=== PATIENT | female | born 1970 | race Caucasian/White ===

== ENCOUNTER 2017-03-22 22:12 | Inpatient (IN) | payer SELFPAY ==
[~2017-03-22] VITALS: Ht 157.5 cm; Wt 93.4 kg
--- NOTE | ~2017-03-22 | HP ---
PATIENT'S NAME: JAY JAY CABRAL [facility] AGE: 46 Y [address] ROOM: [place] [address] LOCATION: [facility] [place] ADMIT DATE: 03/22/2017 History & Physical DISCHARGE DATE: FAMILY PHYSICIAN: PHYSICIAN, NO ATTENDING PHYSICIAN: CORY MERRILL DATE OF SERVICE: CHIEF COMPLAINT: Right lower quadrant pain and right flank pain. HISTORY OF PRESENT ILLNESS: This is a 46-year-old female with a prior history of kidney stones, status post left nephrectomy 1 year ago. The story is that today around 10 o'clock in the morning the patient felt this right lower quadrant and right flank pain. The patient took some Motrin for pain relief; and it did help some, but did not help totally. The pain persisted and got worse around 6 p.m. today the patient only peed once and a very little amount, but she denies any dysuria, urinary frequency or urgency. The patient also felt nauseous, but she did not vomit. Her last meal was a grilled sandwich about roughly around 9 p.m. Because the pain got worse, the patient came here for evaluation. In the emergency room, the patient had a CT scan of abdomen and pelvis without contrast, which showed a moderate right-side hydroureteronephrosis, secondary to 7-mm ureteral calculus at the pelvic inlet. The patient will be taken to the operating room to have the cystoscopy and right ureteral stent placement. REVIEW OF SYSTEMS: As mentioned in history of present illness. All other systems were reviewed and were negative except those mentioned in history of present illness. PAST MEDICAL HISTORY: 1. Hypothyroidism. 2. Hypertension. 3. Depression. ALLERGIES: NO KNOWN DRUG ALLERGIES. HOME MEDICATIONS: Currently, it is being reconciled. The patient does not take any blood thinners or aspirin at home. SOCIAL HISTORY: PATIENT'S NAME: JAY JAY CABRAL [facility] AGE: 46 Y [address] ROOM: [place] [address] LOCATION: [facility] [place] ADMIT DATE: 03/22/2017 History & Physical DISCHARGE DATE: FAMILY PHYSICIAN: PHYSICIAN, NO ATTENDING PHYSICIAN: CORY MERRILL The patient denies any alcohol, cigarette, or illegal drug use. PAST SURGICAL HISTORY: Left nephrectomy 1 year ago. FAMILY HISTORY: She does not remember about her father, but her mother has hypertension and diabetes type 2. PHYSICAL EXAMINATION: VITAL SIGNS: At the time of dictation, temperature 98, blood pressure 170/100, respirations 14, heart rate 86, and saturation 97% on room air. GENERAL APPEARANCE: Alert and oriented x3, in no acute distress. HEENT: Pupils are equally round and reactive to light. Extraocular muscles intact. Anicteric sclerae. Nasal turbinates are normal bilaterally. Moist oral mucosa. CARDIOVASCULAR: Regular rate and rhythm. No murmur, no rubs, no gallops. Normal S1, S2. RESPIRATORY: Clear to auscultation. No rales. No rhonchi. No wheezing. No crackles. ABDOMEN: Soft, obese, tender to palpation in the right lower quadrant and also on the right flank area, intensity about 6/10. No abdominal rigidity. Bowel sounds present. No mass. EXTREMITIES: No edema in upper or lower extremities. SKIN: No ulcer, no rash, no cyanosis. NEUROLOGICAL: Grossly nonfocal. LABORATORY DATA: White blood cell 12.5, hemoglobin 13.4, hematocrit 40.4, and platelet 215. Glucose 151, BUN 41, creatinine 2.5, sodium 135, potassium 4.4, chloride 105, CO2 21, calcium 9.5, total protein 7.8, albumin 3.2, AST 38, ALT 38, alkaline phosphatase 52, total bilirubin 1.0, anion gap 13.4, globulin 4.6, and GFR 21. IMAGING STUDIES: CT abdomen and pelvis without contrast on admission showed moderate right- sided hydroureteronephrosis related to a 7-mm ureteral calculus at the pelvic inlet. This is a preliminary report. ASSESSMENT AND PLAN: 1. Regarding her severe sepsis secondary to UTI/pyelnephritis secondary to right-sided hydroureteronephrosis from obstructive 7-mm right ureteral calculus at the pelvic inlet: I will cover her with intravenous Zosyn right now, get 2 sets of blood culture, get a UA and urine culture. The patient will be going to the operating room now to undergo a stent placement by Urology Service. After that, we will start the patient on intravenous fluids given that currently the patient cannot PATIENT'S NAME: JAY JAY CABRAL [facility] AGE: 46 Y [address] ROOM: [place] [address] LOCATION: [facility] [place] ADMIT DATE: 03/22/2017 History & Physical DISCHARGE DATE: FAMILY PHYSICIAN: PHYSICIAN, NO ATTENDING PHYSICIAN: CORY MERRILL make any urine due to the kidney stone obstruction. N.p.o. for now in anticipation for stent placement. Further plan will depend on clinical course. 2. Regarding her acute kidney injury: This is secondary to postobstructive acute kidney injury due to the kidney stone that is obstructive on the right ureteral calculus at the pelvic inlet of 7-mm. Refer to the plan in right-sided hydroureteronephrosis as mentioned above. 3. Regarding her hypertension: Hold the blood pressure medication for now and can resume once it is appropriate. 4. Regarding her hypothyroidism: Continue the home medication, but I will check a TSH to make sure that we do not have to titrate the dose. 5. Regarding her depression: Continue home medication. 6. Regarding her deep vein thrombosis prophylaxis: Currently, undergoing the ureteral stent and can consider pharmacologic agent after the stent is placed. 7. She is a full code. Time spent in care on the day of admission 35 minutes, where 15 minutes was spent on chart review and the remainder of the time was spent on interview, physical examination, and counseling, which includes going over the plan of care with the patient and addressing all the question and concern the patient had. Further plan will depend on clinical course. CORY MERRILL MD CC/bria /[id number] D: [id number] T: [id number] HISTORY & PHYSICAL
--- NOTE | ~2017-03-22 | OR ---
PATIENT'S NAME: JAY JAY CABRAL [facility] AGE: 47 Y [address] ROOM: [place] [address] [place] [facility] [place]: 03/22/2017 OR/Procedure Report DISCHARGE DATE: 03/24/2017 FAMILY PHYSICIAN: ELIESER BUTTERFIELD ATTENDING PHYSICIAN: Vidal Perez SURGEON: Anum Alvarez MD TRAUMA COORDINATOR: None. DATE OF PROCEDURE: 03/22/2017 PREOPERATIVE DIAGNOSES: 1. 7 mm distal obstructing right ureteral calculus. 2. Solitary right kidney. 3. Acute kidney injury. 4. Nonobstructing right lower pole renal calculus. 5. Recurrent nephrolithiasis. POSTOPERATIVE DIAGNOSES: 1. 7 mm distal obstructing right ureteral calculus. 2. Solitary right kidney. 3. Acute kidney injury. 4. Nonobstructing right lower pole renal calculus. 5. Recurrent nephrolithiasis. OPERATIVE PROCEDURE: Cystoscopy with placement of indwelling right ureteral stent. ANESTHESIA ADMINISTERED: Monitored anesthesia care. INDICATIONS FOR PROCEDURE: The patient is a pleasant 46-year-old female, who had presented with acute onset of right flank pain. The patient does have a history of recurrent nephrolithiasis and solitary right kidney. She had apparently underwent a hand assisted laparoscopic left nephrectomy approximately one year ago for a nonfunctioning left kidney in the setting of recurrent urinary tract infection and recurrent nephrolithiasis. For her right flank pain, she underwent further evaluation with a CT scan with findings including a 7 mm distal ureteral stone at the level of her pelvic inlet as well as a nonobstructing right lower pole stone measuring approximately 3-4 mm in size. She did have significant hydronephrosis and hydroureter leading down to the level of the obstructing 7 mm stone. She was also found to have an elevated serum creatinine level of 2.5. The patient was explained the risks, benefits, indications, and alternatives to the above procedure and wished to proceed and consented freely. DESCRIPTION OF OPERATION: The patient was brought back to the operating room, where she was placed on the OR table in the supine position. A surgical time- PATIENT'S NAME: JAY JAY CABRAL [facility] AGE: 47 Y [address] ROOM: [place] [address] [place] [facility] [place]: 03/22/2017 OR/Procedure Report DISCHARGE DATE: 03/24/2017 FAMILY PHYSICIAN: ELIESER BUTTERIFELD ATTENDING PHYSICIAN: Vidal Perez out was called where patient identification, surgical site, and procedure was then verified. We also did verify that the patient received an IV antibiotic within an hour prior to beginning the procedure. After undergoing successful administration of anesthesia, the patient was then moved and placed in a low lithotomy position. The patient's genital area was then prepped and draped in usual sterile fashion. I began by carefully advancing into the patient's bladder with a rigid cystoscope. Her urethra was within normal limits. Upon entering her bladder, a full mojica cystoscopy was performed. Her bladder was negative for any bladder tumors, cellules, or diverticula. Her ureteral orifices were noted to be in orthotopic location. I then utilized a Sensor guidewire to carefully advance the wire cannulating the patient's right ureteral orifice and was able to advance the wire past the obstructing stone and up to the patient's right renal pelvis. Then over the wire, I advanced a 4.8-Ugandan multi-length ureteral stent deploying it noting a good curl fluoroscopically in the patient's right renal pelvis as well as a good curl visually in the patient's bladder. I then emptied the patient's bladder and the patient was then taken out of the lithotomy position where she was then awoken from anesthesia, transferred to recovery bed, and transported to the recovery room in good condition. COMPLICATIONS: None. DRAINS: Indwelling right ureteral stent. ESTIMATED BLOOD LOSS: Minimal. SPECIMENS: None. FOLLOWUP PLAN: We will plan to have the Hospitalist team closely monitor her renal function overnight and if it continues to improve, then we will get her set up for followup as an outpatient for right ureteroscopy, laser lithotripsy, and stent exchange. ANUM ALVAREZ MD GP/bria /[id number] d: 04/10/172048 t: 04/11/17 0803, OPERATIVE SUMMARY
--- NOTE | ~2017-03-22 | CON ---
PATIENT'S NAME: JAY JAY CABRAL [facility] AGE: 46 Y [address] ROOM: [place] [address] [place] [facility] [place]: 03/22/2017 Consultation DISCHARGE DATE: FAMILY PHYSICIAN: ALYCE WHITLOCK ATTENDING PHYSICIAN: CORY MERRILL DATE OF CONSULTATION: 03/22/2017 REFERRING PHYSICIAN: ANUM DAVIDSON MD CHIEF COMPLAINT: Right flank pain. HISTORY OF PRESENT ILLNESS: The patient is a pleasant 46-year-old female, who presented with acute onset of right flank pain. The patient does have a history of recurrent nephrolithiasis and solitary right kidney. She had apparently underwent a hand assisted laparoscopic left nephrectomy approximately 1 year ago for a nonfunctioning left kidney in the setting of recurrent urinary tract infection and recurrent nephrolithiasis. She has had continued difficulty with recurrent nephrolithiasis now in her remaining and solitary right kidney. She states that she had underwent ureteroscopy with apparent laser lithotripsy in September along with stent placement in [place], then underwent stent removal in October. She also states she recently completed a 24-hour urine analysis with her urologist in [place]. She was noted in the emergency room to have an elevated creatinine of 2.5 and white blood cell count of 12.5. She has not made any urine now for the last 3 to 4 hours. She underwent a CT scan in the emergency room here, which demonstrated a 7-mm ureteral distal stone at the level of her pelvic inlet as well as nonobstructing right lower pole stone measuring approximately 3 to 4 mm in size. She had significant hydronephrosis and hydroureter leading down to the level of the obstructing 7-mm stone. She denies any nausea or vomiting, but has had continued severe right flank pain. She was still not able to give a urine specimen as she has not been able to void and so no urinalysis is back yet. The patient has no further questions or concerns at this time. PAST MEDICAL HISTORY: 1. Recurrent nephrolithiasis. 2. Hypertension. 3. Solitary right kidney. 4. Recurrent urinary tract infection. PAST SURGICAL HISTORY: 1. Left laparoscopic hand assisted nephrectomy approximately 1 year ago in PATIENT'S NAME: JAY JAY CABRAL [facility] AGE: 46 Y [address] ROOM: [place] [address] [place] [facility] [place] [place]: 03/22/2017 Consultation DISCHARGE DATE: FAMILY PHYSICIAN: PHYSICIAN, NO ATTENDING PHYSICIAN: CORY MERRILL [place], [place]. 2. Spinal fusion. FAMILY HISTORY: The patient denies any known family history of nephrolithiasis. SOCIAL HISTORY: The patient denies any tobacco use or alcohol use. 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 ALLERGIES: NO KNOWN DRUG ALLERGIES. MEDICATIONS: See hospitalization medication reconciliation. REVIEW OF SYSTEMS: A full 10 plus point review of systems was performed with pertinent positive and negative findings included in the history of present illness. All other systems reviewed and are otherwise negative. PHYSICAL EXAMINATION: VITAL SIGNS: Stable. CONSTITUTIONAL: Mild distress. The patient is awake and oriented. HEENT: Extraocular muscles intact. Mucous membranes moist. No drainage per ears or nose. CARDIAC: Good peripheral perfusion. RESPIRATORY: No audible wheezing and no apparent respiratory distress on room air. ABDOMEN: Nontender, obese. She does have some mild right CVA discomfort. MUSCULOSKELETAL: Moves all extremities. NEUROLOGIC: No focal deficits noted. HEMATOLOGIC: No bruising or active sites of bleeding. PSYCHIATRIC: Normal affect and answers questions appropriately. IMAGING: I personally reviewed her images from her CT scan consistent with findings noted above in history of present illness. IMPRESSION: 1. 7-mm distal obstructing right ureteral calculus. 2. Solitary right kidney. 3. Acute kidney injury. 4. Nonobstructing right lower pole renal calculus. 5. Recurrent nephrolithiasis. PATIENT'S NAME: JAY JAY CABRAL [facility] AGE: 46 Y [address] ROOM: [address] [address] [place] [facility] [place]: 03/22/2017 Consultation DISCHARGE DATE: FAMILY PHYSICIAN: PHYSICIAN, NO ATTENDING PHYSICIAN: CORY MERRILL PLAN: I had a long discussion today with the patient regarding my findings. Given her obstructing stone in the setting of a solitary kidney, I did recommend urgent decompression with cystoscopy and stent placement. The patient will also ultimately need further treatment on an outpatient basis with right ureteroscopy with laser lithotripsy and stent exchange. I did explain to the patient the risks, benefits, indications, and alternatives to the above procedure and she wished to proceed and consented freely. The patient has no further questions or concerns at this time. MD SOHEILA SHOEMAKER/bria /[id number] d: 03/23/17 0405 t: 03/24/17 1032, CONSULTATION REPORT
--- NOTE | ~2017-03-22 | ER ---
PATIENT'S NAME: JAY JAY CABRAL [facility] AGE: 46 Y [address] ROOM: [place] [address] LOCATION: [facility] [place] ADMIT DATE: 03/22/2017 ER/Outpatient Report DISCHARGE DATE: FAMILY PHYSICIAN: PHYSICIAN, NO ATTENDING PHYSICIAN: CORY MERRILL Time of Arrival: 2212 hours. Time of Evaluation: 2217 hours. CHIEF COMPLAINT: Right flank pain, possible kidney stone. HISTORY OF PRESENT ILLNESS: This is a 46-year-old female, who presents to the ER, who states that she has a significant history of kidney stones in the past and ultimately had to have a left nephrectomy from that. She states she developed right flank pain around 10 o'clock this morning, and it radiates into her groin area. She describes her pain as sharp and crampy like. She states that then 3 hours prior to arrival, she stopped making urine. She has had no nausea or vomiting. No fever or chills. She states that she has concerns since she just has her one kidney and denies any other problems at this time. ALLERGIES: NO KNOWN ALLERGIES. MEDICATIONS: Please see medication list in nurse's notes. PAST MEDICAL HISTORY: Hypertension. PAST SURGICAL HISTORY: She has had a left nephrectomy and a back surgery. SOCIAL HISTORY: Denies smoking, drug, or alcohol use. REVIEW OF SYSTEMS: All systems were reviewed and were negative with the exception of those discussed in the HPI. PHYSICAL EXAMINATION: VITAL SIGNS: Height 5 feet 2 inches stated, weight 96.4 kg taken, blood pressure is 188/108, pulse 51, respirations 16, temperature 97.6 degrees tympanically, and saturations 97% on room air. Ashlee Coma Score is 15. PATIENT'S NAME: JAY JAY CABRAL [facility] AGE: 46 Y [address] ROOM: [address] [address] LOCATION: [facility] [place] ADMIT DATE: 03/22/2017 ER/Outpatient Report DISCHARGE DATE: FAMILY PHYSICIAN: PHYSICIAN, ALYCE ATTENDING PHYSICIAN: CORY MERRILL GENERAL: An alert and obese female, in mild distress. HEENT: Head: Normocephalic. She does display moist mucous membranes. Eyes: Pupils are equal and reactive to light. NECK: Supple. No lymphadenopathy. LUNGS: Clear to auscultation bilaterally. HEART: Bradycardic, normal rhythm. ABDOMEN: Soft. She does have some right-sided abdominal discomfort with palpation. She has no guarding or rebound tenderness. She has good bowel sounds throughout. She has some mild right-sided CVA tenderness as well. EXTREMITIES: No clubbing or cyanosis. She does have full range of motion of all limbs. SKIN: Warm, dry, and intact. NEURO: Cranial nerves 2 through 12 grossly intact. Gait is steady without assistance. LABORATORY DATA: CBC: White count is 12.5, hemoglobin is 13.4, platelets 215, ANC is 10.6. CMS: Sodium is 135, potassium is 4.4, BUN is 41, creatinine 2.5, estimated GFR is 21. CT scan was done per stone protocol and does show a moderate right- sided hydronephrosis related to a 7 mm ureteral calculus at the pelvic inlet. IMPRESSION: A 7 mm kidney stone in the right pelvic inlet causing obstruction with elevation of BUN and creatinine. ASSESSMENT AND PLAN: We did establish an IV here in the emergency room. We did give her 15 mg of Toradol IV. The patient remained comfortable, and she did not want anything stronger than that given while here in the emergency room. The patient does not have a primary care physician in this area. I did call Dr. Alvarez after I got results of the CT scan and then notified Dr. Merrill, the hospitalist. They will both be coming to evaluate the patient here in the emergency room. The patient understands and agrees with care. ADEBAYO MARIN PA-C FOR MD DAVID PADGETT/bria /[id number] d: t: 03/28/17 1500, OUTPATIENT REPORT
--- NOTE | ~2017-03-22 | DS ---
PATIENT'S NAME: JAY JAY CABRAL [facility] AGE: 46 Y [address] ROOM: [place] [address] LOCATION: [facility] [place] ADMIT DATE: 03/22/2017 Discharge Summary DISCHARGE DATE: 03/24/2017 FAMILY PHYSICIAN: PHYSICIAN, ALYCE ATTENDING PHYSICIAN: Vidal Perez PRIMARY DIAGNOSIS FOR THIS HOSPITALIZATION: 1. Urolithiasis. 2. Acute kidney injury on chronic kidney disease. 3. Positive blood culture, likely a contaminant. 4. Accelerated hypertension. CHRONIC CONDITIONS: Solitary kidney. CONSULTANTS: The consultants who participated in the patient's care is Dr. Alvarez of Urology. PROCEDURE PERFORMED: Cystoscopy with placement of ureteral stent. SUMMARY OF HOSPITALIZATION: The patient is a 46-year-old female, who has a past medical history of recurrent kidney stones with an eventual nephrectomy, who presented to [facility] with complaints of flank pain and was found to have a 7 mm obstructing calculus in the right collecting stone. She was also found to be in acute kidney injury, with a creatinine of 2.5 up from baseline of 1.6. She was taken urgently for cystoscopy with stent placement and decompression by Dr. Alvarez. The procedure was successful. The patient was transferred back to medical-surgical unit and was aggressively hydrated. Eventually, her creatinine improved to 1.9. The patient insisted on going home as soon as possible, but we talked to her and she was staying for an additional night in order to achieve that creatinine improvement. The patient did have a single set of blood cultures which were positive with a gram-positive non-staph organism. Those cultures are still pending, but the second set remained negative and repeat cultures drawn once the first set came back positive remained negative. She did not exhibit any fevers, chills, or any other evidence of systemic bacterial infection. She was started on ceftriaxone and maintained on the antibiotics from the time of admission. Today, the patient insisted on going home and I explained to her that while I do feel that her blood culture is likely a contaminant, we have to be very vigilant given the presence of a Uro/nephrolithiasis and a stent. I explained to the patient that we will follow her repeat cultures (as well as the second set from the initial draw) for the next 24 to 48 hours. If they do come back positive, she will be called to come back to the hospital. She was also told that immediately seek medical care if she developed fevers, chills, nausea, vomiting, or urinary symptoms. The patient PATIENT'S NAME: JAY JAY CABRAL [facility] AGE: 46 Y [address] ROOM: [place] [address] LOCATION: [facility] [place] ADMIT DATE: 03/22/2017 Discharge Summary DISCHARGE DATE: 03/24/2017 FAMILY PHYSICIAN: ALYCE WHITLOCK ATTENDING PHYSICIAN: Vidal Perez was satisfied with this plan. She was discharged home on cefdinir 300 mg p.o. b.i.d. She was advised to follow up with Dr. Alvarez for outpatient followup as she will require additional intervention on her kidney. Time dedicated to the patient encounter is 35 minutes. MD KIRK TELLES/bria /[id number] d: 03/24/172226 t: 04/01/17 2315, DISCHARGE SUMMARY
[2017-03-22 22:45] LABS: BASOPHIL # 0.1 K/uL (0.0-0.2); BASOPHIL % 0.5 %; EOSINOPHIL # 0.2 K/uL (0.0-0.5); EOSINOPHIL % 1.7 %; HEMATOCRIT 40.4 % (33.0-46.0); HEMOGLOBIN 13.4 g/dL (10.0-15.0); IMMATURE GRANULOCYTE # 0.1 K/uL (0.0-0.3); IMMATURE GRANULOCYTE % 0.6 %; LYMPHOCYTE % 8.2 %; MCH 30.6 pg (27.0-34.0); MCHC 33.2 gm/dL (32.0-36.5); MCV 92.2 fl (83.0-98.0); MONOCYTE # 0.6 K/uL (0.0-1.0); MONOCYTE % 4.8 %; MPV 10.2 fl (9.4-12.4); NEUTROPHIL # (ANC) 10.6 K/uL (1.8-7.8); NEUTROPHIL % 84.2 %; NRBC % 0 /100WBC (0-0.00); PLATELET COUNT 215 K/uL (150-450); RBC 4.38 M/uL (3.50-5.50); RDW-CV 13.1 % (11.9-14.6); WBC 12.5 K/uL (4.0-11.0)
[2017-03-22 23:02] LABS: ALBUMIN 3.2 gm/dL (3.5-5.0); ANION GAP 13.4 (10.0-19.0); CALCIUM 9.5 mg/dL (8.5-10.5); CREATININE 2.5 mg/dL (0.5-1.1); POTASSIUM 4.4 mMol/L (3.7-5.1); TOTAL PROTEIN 7.8 g/dL (6.0-8.4)
[2017-03-23 01:56] LABS: BILIRUBIN URINE NEGATIVE (NEGATIVE); BLOOD URINE 250 /UL (NEGATIVE); COLOR URINE YELLOW (YELLOW); GLUCOSE URINE NEGATIVE (NEGATIVE); KETONE URINE NEGATIVE (NEGATIVE); LEUKOCYTES URINE 500 /UL (NEGATIVE); NITRITE URINE NEGATIVE (NEGATIVE); PROTEIN URINE 30 mg/dL (NEGATIVE); SPEC GRAVITY URINE 1.005 (1.003-1.035); TURBIDITY URINE 3+ (CLEAR); UROBILINOGEN URINE NORMAL (NORMAL)
[2017-03-23 02:02] LABS: WBC URINE PACKED FIELD #/HPF (NEGATIVE)
[2017-03-23 02:04] LABS: AMORPHOUS URINE 2+ (NEGATIVE); BACTERIA URINE FEW (NEGATIVE); EPITHELIAL URINE 0-2 #/HPF (NEGATIVE); WBC CLUMPS URINE FEW (NEGATIVE)
[2017-03-23] MEDS ORDERED: LEVOTHROID (S100 MCG PO (02:08)
[2017-03-23] MEDS ORDERED: TENORMIN100 MG PO (02:08)
[2017-03-23] MEDS ORDERED: ZOLOFT100 MG PO (02:09)
--- NOTE | 2017-03-23 02:17 | NUR ---
AT 1000 ON 03/22/17 PATIENT STARTED HAVING PAIN TO HER R) SIDE AND AT 1800 BEGAN NOT PRODUCING URINE. PATIENT CAME TO THE ER BY PRIVATE CAR AT 2200. PATIENT STATES THAT SHE DOES NOT HAVE A LEFT KIDNEY.
[2017-03-23 05:05] LABS: HEMOGLOBIN 12.6 g/dL (10.0-15.0); MCH 30.6 pg (27.0-34.0); MCHC 33.2 gm/dL (32.0-36.5); MCV 92.2 fl (83.0-98.0); MPV 9.8 fl (9.4-12.4); RBC 4.12 M/uL (3.50-5.50); RDW-CV 13.2 % (11.9-14.6); WBC 13.6 K/uL (4.0-11.0)
--- NOTE | 2017-03-23 05:11 | NUR ---
Significant Event: DENIES PAIN. STANDBY ASSIST. VOIDS WITHOUT DIFFICULTY. ON 1 L OF OXYGEN NASAL CANNULA. PATIENT STATES THAT SHE HAS FOOT DROP TO L) FOOT. Follow up:
[2017-03-23 05:21] LABS: ANION GAP 15.2 (10.0-19.0); CALCIUM 9.8 mg/dL (8.5-10.5); CREATININE 2.5 mg/dL (0.5-1.1); POTASSIUM 4.2 mMol/L (3.7-5.1)
--- NOTE | 2017-03-23 14:07 | NUR ---
Significant Event: Pt denies pain. Up ad masha in room. Continues on IVATB. Follow up:
--- NOTE | 2017-03-24 05:18 | NUR ---
Significant Event: PATIENT IS ALERT AND ORIENTATED X 3 AMBULATES INDEPENDENTLY. VITAL SIGHNS WNL. L FOOT HAS DROP FOOT., KIDNEY STONES STRAIN URINE SEND STONE TO LOB IF COLLECTED. PLEASANT WITH CARES. NEW ANTIBOTIC ORDERS. NO COMPLAINTES OF PAIN OR DISCOMFORT Follow up:
[2017-03-24 06:03] LABS: BASOPHIL % 0.4 %; EOSINOPHIL # 0.1 K/uL (0.0-0.5); EOSINOPHIL % 1.7 %; HEMATOCRIT 34.5 % (33.0-46.0); HEMOGLOBIN 11.5 g/dL (10.0-15.0); IMMATURE GRANULOCYTE # 0.1 K/uL (0.0-0.3); IMMATURE GRANULOCYTE % 0.6 %; LYMPHOCYTE # 0.8 K/uL (0.8-4.0); LYMPHOCYTE % 10.2 %; MCH 31.3 pg (27.0-34.0); MCHC 33.3 gm/dL (32.0-36.5); MCV 93.8 fl (83.0-98.0); MONOCYTE # 0.8 K/uL (0.0-1.0); MONOCYTE % 9.3 %; MPV 10.2 fl (9.4-12.4); NEUTROPHIL # (ANC) 6.4 K/uL (1.8-7.8); NEUTROPHIL % 77.8 %; NRBC % 0 /100WBC (0-0.00); PLATELET COUNT 189 K/uL (150-450); RBC 3.68 M/uL (3.50-5.50); RDW-CV 13.3 % (11.9-14.6)
[2017-03-24 06:23] LABS: WBC 8.3 K/uL (4.0-11.0)
[2017-03-24 06:31] LABS: ALBUMIN 2.8 gm/dL (3.5-5.0); CALCIUM 9.5 mg/dL (8.5-10.5); CREATININE 1.9 mg/dL (0.5-1.1); MAGNESIUM 1.9 mg/dL (1.8-2.6); PHOSPHORUS 3.6 mg/dL (2.5-4.9)
[2017-03-24] MEDS ORDERED: OMNICEF 300MG300 MG PO (16:43)
[2017-03-24] MEDS ORDERED: FLORASTOR250 MG PO (16:44)
== END 2017-03-24 17:00 | disposition disaster alternative care site (69) | DRG 694 ==
LOC: GMED 22:12 → GMSU 23:40
PROVIDERS: Emergency Medicine; Physician Assistant; Urology; ADMIT Internal Medicine
PROC: 0T768DZ Dilation of Right Ureter with Intraluminal Device, Via Natural or Artificial Opening Endoscopic (ICD-10-PCS; principal; 2017-03-23)
DX: N13.2 Hydronephrosis with renal and ureteral calculous obstruction (principal); N17.9 Acute kidney failure, unspecified; N39.0 Urinary tract infection, site not specified; I10 Essential (primary) hypertension; E03.9 Hypothyroidism, unspecified; E66.9 Obesity, unspecified; F32.9 Major depressive disorder, single episode, unspecified; Z68.37 Body mass index [BMI] 37.0-37.9, adult; Z90.5 Acquired absence of kidney; Z87.442 Personal history of urinary calculi; Z87.440 Personal history of urinary (tract) infections; Z98.1 Arthrodesis status
CPT/HCPCS: C1769; C2617; J0696; J1885; J2020; J2543; J7030; J7040; J7120